=== PATIENT | female | born 1980 | race African-American/Black ===

== ENCOUNTER 2017-01-04 13:18 | Emergency (ER) | payer SELFPAY ==
[~2017-01-04] VITALS: Ht 175.3 cm; Wt 130.0 kg
[2017-01-04] MEDS ORDERED: ACETAMINOPHEN 325MG TABLET PO ONE (15:30)
[2017-01-04] MEDS ORDERED: IBUPROFEN 600MG TABLET PO ONE (15:30)
[2017-01-04 16:56] VITALS: BP 124/75
== END 2017-01-04 16:57 | disposition home or self-care (01) ==
LOC: ER 14:43
DX: M19.90 Unspecified osteoarthritis, unspecified site (principal); M25.469 Effusion, unspecified knee; F17.200 Nicotine dependence, unspecified, uncomplicated; F12.10 Cannabis abuse, uncomplicated
CPT/HCPCS: 73562; 93971; 99284

== ENCOUNTER 2017-02-22 08:11 | Emergency (ER) | payer SELFPAY ==
[~2017-02-22] VITALS: Ht 175.3 cm; Wt 132.0 kg
[2017-02-22] MEDS ORDERED: ALBUTEROL (0.5%) 2.5MG/0.5ML NEB HHN ONE (10:45)
[2017-02-22 13:01] VITALS: BP 111/66
== END 2017-02-22 13:05 | disposition home or self-care (01) ==
LOC: ER 10:43
DX: J40 Bronchitis, not specified as acute or chronic (principal); F17.200 Nicotine dependence, unspecified, uncomplicated; F12.10 Cannabis abuse, uncomplicated
CPT/HCPCS: 71020; 81025; 94640; 99284; J7611

== ENCOUNTER 2018-03-18 18:16 | Emergency (ER) | payer SELFPAY ==
[~2018-03-18] VITALS: Ht 175.3 cm; Wt 101.0 kg
[2018-03-18] MEDS ORDERED: SODIUM CHLORIDE 0.9% 1,000 ML IV ONE ×2 (18:58)
[2018-03-18] MEDS ORDERED: KETOROLAC 30MG/ML VIAL IV STA (18:58)
[2018-03-18] MEDS ORDERED: DIAZEPAM 5 MG TABLET PO ONE (20:45)
[2018-03-18 21:05] LABS: *COCAINE SCREEN URINE NEGATIVE (NEGATIVE); METHADONE URINE SCREEN NEGATIVE (NEGATIVE)
[2018-03-18 21:06] LABS: *AMPHETAMINES SCREEN URINE NEGATIVE (NEGATIVE); *BARBITURATES SCREEN URINE NEGATIVE (NEGATIVE); OPIATES URINE SCREEN NEGATIVE (NEGATIVE); PHENCYCLIDINE URINE SCREEN NEGATIVE (NEGATIVE)
[2018-03-18 21:09] LABS: *BENZODIAZEPINES SCREEN URINE NEGATIVE (NEGATIVE)
[2018-03-18 21:11] LABS: CANNABINOID URINE SCREEN PRESUMTIVE POSITIVE (NEGATIVE)
[2018-03-18 21:43] LABS: EOSINOPHILS % 2.5 % (0.0-5.0); HEMATOCRIT. 38.8 % (36.0-48.0); HEMOGLOBIN. 12.8 g/dL (12.0-16.0); LYMPHOCYTES % 37.3 % (20.0-50.0); MEAN CORPUSCULAR VOLUME 91.3 fL (81.0-99.0); MEAN PLATELET VOLUME 9.5 fl (7.4-10.4); MONOCYTES % 6.7 % (2.0-8.0); NEUTROPHILS % 52.5 % (40.0-76.0); PLATELET 223 x1000/uL (130-400); RED BLOOD CELL COUNT 4.25 mill/uL (4.2-5.4); RED CELL DISTRIBUTION WIDTH 14.5 % (11.6-14.6)
[2018-03-18 21:45] LABS: CHLORIDE 105 mEq/L (98-107)
[2018-03-18 21:46] LABS: HCG SCREEN NEGATIVE
[2018-03-18 21:48] LABS: PARTIAL THROMBOPLASTIN TIME 25.9 sec (23.4-31.0); PROTHROMBIN TIME 10.4 sec (9.4-11.6)
[2018-03-19 00:34] VITALS: BP 146/74
== END 2018-03-19 01:27 | disposition home or self-care (01) ==
LOC: ER 18:16
DX: M54.12 Radiculopathy, cervical region (principal); R07.89 Other chest pain; F17.200 Nicotine dependence, unspecified, uncomplicated; F12.10 Cannabis abuse, uncomplicated
CPT/HCPCS: 36415; 71045; 72125; 80053; 80305; 83690; 83880; 84443; 84484; 84703; 85025; 85610; 85730; 93005; 96374; 99285; J1885; J7030; Z7610

== ENCOUNTER 2019-01-01 15:42 | Emergency (ER) | payer BC ==
[~2019-01-01] VITALS: Ht 175.3 cm; Wt 136.0 kg
[2019-01-01] MEDS ORDERED: SODIUM CHLORIDE 0.9% 1,000 ML IV ONE (17:49)
[2019-01-01] MEDS ORDERED: ONDANSETRON HCL 4MG/2ML INJ IV ONE (18:00)
[2019-01-01 18:12] LABS: BASOPHILS % 1.1 % (0.0-2.0); EOSINOPHILS % 0.4 % (0.0-5.0); HEMATOCRIT. 39.6 % (36.0-48.0); LYMPHOCYTES % 24.3 % (20.0-50.0); MEAN CORPUSCULAR HEMOGLOBIN 29.3 pg (28.0-32.0); MEAN CORPUSCULAR VOLUME 89.4 fL (81.0-99.0); MEAN PLATELET VOLUME 9.3 fl (7.4-10.4); MONOCYTES % 5.7 % (2.0-8.0); NEUTROPHILS % 68.5 % (40.0-76.0); PLATELET 249 x1000/uL (130-400); RED BLOOD CELL COUNT 4.43 mill/uL (4.2-5.4); RED CELL DISTRIBUTION WIDTH 14.7 % (11.6-14.6)
[2019-01-01 18:17] LABS: CHLORIDE 103 mEq/L (98-107)
[2019-01-01 18:40] LABS: B-HCG QUANTITATIVE 17145 mIU/mL (<3)
[2019-01-01 20:06] LABS: CLARITY URINE CLOUDY (CLEAR); COLOR URINE YELLOW (YELLOW); KETONES URINE 3+ (NEGATIVE); LEUKOCYTE ESTERASE URINE 2+ (NEGATIVE); NITRITE URINE NEGATIVE (NEGATIVE); OCCULT BLOOD URINE NEGATIVE (NEGATIVE); PH URINE 6.5 (4.5-8.0); PROTEIN URINE TRACE (NEGATIVE); SPECIFIC GRAVITY URINE 1.027 (1.005-1.030)
[2019-01-01 20:27] LABS: *BARBITURATES SCREEN URINE NEGATIVE (NEGATIVE); *BENZODIAZEPINES SCREEN URINE NEGATIVE (NEGATIVE); *COCAINE SCREEN URINE NEGATIVE (NEGATIVE)
[2019-01-01 20:29] LABS: *AMPHETAMINES SCREEN URINE NEGATIVE (NEGATIVE); METHADONE URINE SCREEN NEGATIVE (NEGATIVE); OPIATES URINE SCREEN NEGATIVE (NEGATIVE); PHENCYCLIDINE URINE SCREEN NEGATIVE (NEGATIVE)
[2019-01-01 20:32] LABS: CANNABINOID URINE SCREEN PRESUMTIVE POSITIVE (NEGATIVE)
[2019-01-01 21:09] VITALS: BP 132/72
== END 2019-01-01 21:14 | disposition home or self-care (01) ==
LOC: ER 15:42
DX: O23.41 Unspecified infection of urinary tract in pregnancy, first trimester (principal); O21.9 Vomiting of pregnancy, unspecified; O10.911 Unspecified pre-existing hypertension complicating pregnancy, first trimester; O99.321 Drug use complicating pregnancy, first trimester; O26.891 Other specified pregnancy related conditions, first trimester; F12.90 Cannabis use, unspecified, uncomplicated; R07.89 Other chest pain; O99.211 Obesity complicating pregnancy, first trimester; Z3A.01 Less than 8 weeks gestation of pregnancy
CPT/HCPCS: 36415; 76801; 76817; 80053; 80305; 81003; 81025; 84484; 84702; 85025; 86850; 86900; 86901; 87077; 87086; 93005; 96361; 96374; 99284; J2405; J7030

== ENCOUNTER 2019-01-28 15:35 | Emergency (ER) | payer BC ==
[~2019-01-28] VITALS: Ht 172.7 cm; Wt 100.0 kg
[2019-01-28 17:20] VITALS: BP 122/86
== END 2019-01-28 21:24 | disposition left against medical advice (07) ==
LOC: ER 15:35
DX: R51 Headache (principal); R42 Dizziness and giddiness; H53.8 Other visual disturbances; Z53.21 Procedure and treatment not carried out due to patient leaving prior to being seen by health care provider

== ENCOUNTER 2019-06-08 14:17 | Observation (INO) | payer SELFPAY ==
[~2019-06-08] VITALS: Ht 175.3 cm; Wt 129.3 kg
[2019-06-08] MEDS ORDERED: LACTATED RINGERS 1,000 ML IV SCH (15:15)
[2019-06-08 15:38] LABS: CLARITY URINE CLEAR (CLEAR); COLOR URINE DARK YELLOW (YELLOW); KETONES URINE TRACE (NEGATIVE); LEUKOCYTE ESTERASE URINE 1+ (NEGATIVE); NITRITE URINE NEGATIVE (NEGATIVE); OCCULT BLOOD URINE NEGATIVE (NEGATIVE); PROTEIN URINE TRACE (NEGATIVE); SPECIFIC GRAVITY URINE 1.035 (1.005-1.030)
[2019-06-08] MEDS ORDERED: CEFAZOLIN 2,000 MG in DEXT 5% WATER 100 ML IV SCH (17:30)
== END 2019-06-08 17:06 | disposition home or self-care (01) ==
LOC: 8 EST LDRP 14:17
PROVIDERS: ADMIT Specialist; ATTEND Specialist
DX: O62.9 Abnormality of forces of labor, unspecified (principal); O26.893 Other specified pregnancy related conditions, third trimester; R10.9 Unspecified abdominal pain; Z3A.29 29 weeks gestation of pregnancy
CPT/HCPCS: 81003; 96365; 99281; G0378; J0690; J7060; 96360

== ENCOUNTER 2019-07-01 09:45 | Observation (INO) | payer SELFPAY ==
[~2019-07-01] VITALS: Ht 175.3 cm; Wt 127.0 kg
[2019-07-01] MEDS ORDERED: LACTATED RINGERS 1,000 ML IV SCH (11:00)
[2019-07-01 11:17] LABS: CLARITY URINE CLOUDY (CLEAR); COLOR URINE YELLOW (YELLOW); KETONES URINE NEGATIVE (NEGATIVE); LEUKOCYTE ESTERASE URINE 1+ (NEGATIVE); NITRITE URINE NEGATIVE (NEGATIVE); OCCULT BLOOD URINE NEGATIVE (NEGATIVE); PROTEIN URINE NEGATIVE (NEGATIVE); SPECIFIC GRAVITY URINE 1.021 (1.005-1.030)
[2019-07-01] MEDS: TERBUTALINE SULFATE 1MG/ML VIAL SUBCUT PRN ×2 (11:57→13:07)
[2019-07-01] MEDS ORDERED: CEFAZOLIN 2,000 MG in DEXT 5% WATER 100 ML IV SCH (12:15)
[2019-07-01] MEDS ORDERED: PREN1TAB78 MT (13:38)
[2019-07-01] MEDS ORDERED: FERR325T6 MT (13:53)
[2019-07-01] MEDS ORDERED: CEPH-569 MT (13:53)
== END 2019-07-01 14:15 | disposition home or self-care (01) ==
LOC: 8 EST LDRP 09:45
PROVIDERS: ADMIT Obstetrics & Gynecology; ATTEND Obstetrics & Gynecology
DX: O26.893 Other specified pregnancy related conditions, third trimester (principal); R10.30 Lower abdominal pain, unspecified; Z3A.32 32 weeks gestation of pregnancy
CPT/HCPCS: 81003; 82731; 96365; 96372; 99281; G0378; J0690; J3105; J7060; 96360; 96361; J7120

== ENCOUNTER 2019-07-02 13:40 | Observation (INO) | payer SELFPAY ==
[~2019-07-02] VITALS: Ht 175.3 cm; Wt 103.4 kg
[~2019-07-02 13:40] MED LIST: CEPH-569 MT; FERR325T6 MT; PREN1TAB78 MT
[2019-07-02] MEDS ORDERED: LACTATED RINGERS 1,000 ML IV SCH (14:45)
[2019-07-02] MEDS ORDERED: TERBUTALINE SULFATE 1MG/ML VIAL SUBCUT PRN (16:30)
[2019-07-02] MEDS ORDERED: NITROFURANTOIN 100MG M/M CAPSULE PO NR (16:30)
[2019-07-02] MEDS ORDERED: BETAMETHASONE ACET/BETAMET 30 MG/5 ML VIAL IM NR (17:00)
== END 2019-07-02 17:30 | disposition home or self-care (01) ==
LOC: 8 EST LDRP 13:40
PROVIDERS: ADMIT Obstetrics & Gynecology; ATTEND Obstetrics & Gynecology
DX: O23.43 Unspecified infection of urinary tract in pregnancy, third trimester (principal); R10.2 Pelvic and perineal pain; Z3A.32 32 weeks gestation of pregnancy
CPT/HCPCS: 96372; 99281; G0378; J0702; J3105; 96360; 96361; J7120

== ENCOUNTER 2019-07-16 18:18 | Observation (INO) | payer MEDICAID ==
[~2019-07-16] VITALS: Ht 175.3 cm; Wt 99.8 kg
== END 2019-07-16 21:45 | disposition home or self-care (01) ==
LOC: 8 EST LDRP 18:18
PROVIDERS: ADMIT Obstetrics & Gynecology; ATTEND Obstetrics & Gynecology
DX: O36.8130 Decreased fetal movements, third trimester, not applicable or unspecified (principal); Z3A.34 34 weeks gestation of pregnancy
CPT/HCPCS: 59025; 76815; 76818; 99281; G0378

== ENCOUNTER 2019-07-20 10:45 | Observation (INO) | payer MEDICAID ==
[~2019-07-20] VITALS: Ht 175.3 cm; Wt 132.9 kg
[~2019-07-20 10:45] MED LIST changes: -CEPH-569 MT
== END 2019-07-20 12:30 | disposition home or self-care (01) ==
LOC: 8 EST LDRP 10:45
PROVIDERS: ADMIT Obstetrics & Gynecology; ATTEND Obstetrics & Gynecology
DX: O41.03X0 Oligohydramnios, third trimester, not applicable or unspecified (principal); Z3A.34 34 weeks gestation of pregnancy
CPT/HCPCS: 59025; 76815; 76818; G0378

== ENCOUNTER 2019-07-23 08:28 | Observation (INO) | payer MEDICAID ==
[~2019-07-23] VITALS: Ht 175.3 cm; Wt 132.9 kg
[2019-07-23] MEDS ORDERED: LACTATED RINGERS 1,000 ML IV SCH (11:30)
[2019-07-23] MEDS ORDERED: TERBUTALINE SULFATE 1MG/ML VIAL SUBCUT SCH (13:45)
== END 2019-07-23 15:17 | disposition home or self-care (01) ==
LOC: 8 EST LDRP 08:28
PROVIDERS: ADMIT Obstetrics & Gynecology; ATTEND Obstetrics & Gynecology
DX: Z34.83 Encounter for supervision of other normal pregnancy, third trimester (principal); Z3A.35 35 weeks gestation of pregnancy
CPT/HCPCS: 76815; 76818; 96372; 99281; G0378; J3105

== ENCOUNTER 2019-07-24 01:52 | Observation (INO) | payer MEDICAID ==
[~2019-07-24] VITALS: Ht 175.3 cm; Wt 132.9 kg
[2019-07-24] MEDS ORDERED: BUTORPHANOL TARTRATE 2 MG/ML VIAL IV NR (02:45)
[2019-07-24] MEDS ORDERED: LACTATED RINGERS 1,000 ML IV NR (02:45)
[2019-07-24] MEDS ORDERED: TERBUTALINE SULFATE 1MG/ML VIAL SUBCUT PRN (03:15)
== END 2019-07-24 04:40 | disposition home or self-care (01) ==
LOC: 8 EST LDRP 01:52
PROVIDERS: ADMIT Obstetrics & Gynecology; ATTEND Obstetrics & Gynecology
DX: O26.893 Other specified pregnancy related conditions, third trimester (principal); R10.30 Lower abdominal pain, unspecified; Z3A.35 35 weeks gestation of pregnancy
CPT/HCPCS: 59025; 96372; 99281; G0378; J3105; 96360; 96361; J0595

== ENCOUNTER 2019-07-24 18:58 | Observation (INO) | payer MEDICAID ==
[~2019-07-24] VITALS: Ht 175.3 cm; Wt 132.9 kg
[2019-07-24] MEDS ORDERED: METRONIDAZOLE 500MG TABLET PO NR (20:00)
[2019-07-24] MEDS ORDERED: TERBUTALINE SULFATE 1MG/ML VIAL SUBCUT NR (20:30)
[2019-07-24] MEDS: TERBUTALINE SULFATE 1MG/ML VIAL SUBCUT PRN ×2 (20:44→21:23)
[2019-07-24] MEDS ORDERED: ACETAMINOPHEN 500MG TABLET PO NR (22:45)
[2019-07-24] MEDS ORDERED: LACTATED RINGERS 1,000 ML IV SCH (22:45)
[2019-07-25 00:02] LABS: CLARITY URINE CLEAR (CLEAR); COLOR URINE DARK YELLOW (YELLOW); KETONES URINE 3+ (NEGATIVE); LEUKOCYTE ESTERASE URINE 1+ (NEGATIVE); NITRITE URINE NEGATIVE (NEGATIVE); OCCULT BLOOD URINE TRACE (NEGATIVE); PROTEIN URINE 1+ (NEGATIVE); SPECIFIC GRAVITY URINE 1.027 (1.005-1.030)
[2019-07-25] MEDS ORDERED: CEFAZOLIN SODIUM 1000MG/VIAL IV ONE (00:45)
[2019-07-25] MEDS ORDERED: CEFAZOLIN 2000MG in DEXTROSE 5% WATER 100ML IV NR (01:00)
== END 2019-07-25 08:45 | disposition home or self-care (01) ==
LOC: 8 EST LDRP 18:58
PROVIDERS: ADMIT Obstetrics & Gynecology; ATTEND Obstetrics & Gynecology
DX: O26.893 Other specified pregnancy related conditions, third trimester (principal); R51 Headache; Z3A.35 35 weeks gestation of pregnancy
CPT/HCPCS: 81003; 96365; 96372; 99281; G0378; J0690; J3105; J7060; 96360; 96361

== ENCOUNTER 2019-07-30 09:14 | Observation (INO) | payer MEDICAID ==
[~2019-07-30] VITALS: Ht 175.3 cm; Wt 132.9 kg
[2019-08-05] MEDS ORDERED: PREN1TAB78 MT (06:08)
== END 2019-07-30 12:20 | disposition home or self-care (01) ==
LOC: 8 EST LDRP 09:14
PROVIDERS: ADMIT Obstetrics & Gynecology; ATTEND Obstetrics & Gynecology
DX: O40.3XX0 Polyhydramnios, third trimester, not applicable or unspecified (principal); O26.893 Other specified pregnancy related conditions, third trimester; R51 Headache; Z3A.36 36 weeks gestation of pregnancy
CPT/HCPCS: 76805; 76818; G0378

== ENCOUNTER 2019-08-03 09:54 | Observation (INO) | payer MEDICAID ==
[~2019-08-03] VITALS: Ht 175.3 cm; Wt 132.9 kg
[2019-08-05] MEDS ORDERED: PREN1TAB78 MT (06:08)
[2019-08-07] MEDS ORDERED: IBUP-2029 MT (06:04)
== END 2019-08-03 11:35 | disposition home or self-care (01) ==
LOC: UNDOADMOB 09:54 → 8EST NSY 09:54 → 8 EST LDRP 09:54
PROVIDERS: ADMIT Obstetrics & Gynecology; ATTEND Obstetrics & Gynecology
DX: Z34.83 Encounter for supervision of other normal pregnancy, third trimester (principal); Z3A.37 37 weeks gestation of pregnancy
CPT/HCPCS: 59025; 76815; 76818; 99281; G0378

== ENCOUNTER 2020-06-25 09:52 | Emergency (ER) | payer MEDICAID ==
[~2020-06-25] VITALS: Ht 175.3 cm; Wt 136.0 kg
[~2020-06-25 09:52] MED LIST changes: +IBUP-2029 MT; -PREN1TAB78 MT
[2020-06-25 10:01] VITALS: BP 176/99
[2020-06-25] MEDS ORDERED: KETOROLAC 30MG/ML VIAL IM ONE (12:00)
== END 2020-06-25 12:11 | disposition home or self-care (01) ==
LOC: ER 09:52
DX: M54.9 Dorsalgia, unspecified (principal); F12.10 Cannabis abuse, uncomplicated; Z98.890 Other specified postprocedural states
CPT/HCPCS: 96372; 99283; J1885